=== PATIENT | female | born 1940 | race Caucasian/White ===

== ENCOUNTER 2017-07-16 23:47 | Inpatient (IN) | payer MEDICARE ==
[~2017-07-16] VITALS: Ht 172.7 cm; Wt 69.9 kg
[~2017-07-16 23:47] MED LIST: ASPI-1169 PO; ATOR20TA PO; ENAL5TAB PO; VERA40TA5 PO
--- NOTE | 2017-07-17 00:05 | NUR ---
ADMISSION NOTES: ADMITTED 77 Y/O WHITE FEMALE FROM [facility]. PT ARRIVE VIA GURNEY ASSISTED BY EMT. PT IS ON 5150 HOLD FOR GD. PER HOLD PATIENT'S SPOUSE IS OUT OF TOWN AND DAUGHTER CALLED 911 BECAUSE PT IS REFUSING TO EAT, GROOM, OR TAKE HER PSYCHIATRIC MEDICATIONS. PATIENT NORMALLY TAKES HALOPERIDOL AND PROZAC. PT UNABLE TO TAKE CARE OF HERSELF. PATIENT ADMITTING DX. SCHIZOPRENIA AND MEDICAL DX. OF HTN, HIGH CHOLESTEROL. UPON FACE TO FACE ASSESSMENT. PATIENT APPEARED ALERT,ORIENTED X 1, CONFUSED, DISORIENTED, DISORGANIZED, RESTLESS, ANXIOUS. V/S STABLE. NO SOB, NO ACUTE DISTRESS, BREATHING EVEN AND UNLABORED, DENIES PAIN AND DISCOMFORT. SKIN/ BODY CHECK DONE, SKIN CLEAR AND INTACT, BELONGINGS CHECKED FOR ANY CONTRABAND ITEMS, NO CONTRABAND FOUND. BOTH DOCTORS MADE AWARE OF THE ADMISSIONS. ALL NEEDS ATTENDED. KEPT CLEAN AND DRY AT ALL TIMES. WILL CONTINUE TO MONITOR FOR SAFETY.
[2017-07-17] MEDS ORDERED: ACETAMINOPHEN 325 MG TABLET PO PRN (00:30)
[2017-07-17] MEDS ORDERED: MAGNESIUM HYDROXIDE 30 ML UDC PO PRN (00:30)
[2017-07-17] MEDS ORDERED: MAG HYDROX/AL HYDROX/SIMETH 30 ML UDC PO PRN (00:30)
[2017-07-17] MEDS ORDERED: LORAZEPAM 0.5 MG TABLET PO PRN (00:30)
[2017-07-17 08:06] VITALS: BP 152/88
[2017-07-17] MEDS: ASPIRIN 81 MG TAB.CHEW PO SCH ×2 (09:39→16:18)
[2017-07-17] MEDS: ENALAPRIL MALEATE (5 MG) 5 MG TABLET PO SCH (09:40)
[2017-07-17] MEDS: VERAPAMIL HCL 80 MG TABLET PO SCH (09:41)
[2017-07-17] MEDS: Z GUARD REMEDY 2 OZ OINT TP SCH (09:42)
[2017-07-17] MEDS: BENZTROPINE MESYLATE (1 MG) 1 MG TABLET PO SCH ×2 (12:36→16:18)
[2017-07-17] MEDS: HALOPERIDOL 5 MG TABLET PO SCH ×2 (12:37→16:18)
[2017-07-17 16:16] VITALS: BP 133/58
[2017-07-17 19:55] VITALS: BP 99/49
[2017-07-17] MEDS: ATORVASTATIN 10 MG TABLET PO SCH (21:32)
[2017-07-18 08:00] VITALS: BP 143/80
[2017-07-18] MEDS: BENZTROPINE MESYLATE (1 MG) 1 MG TABLET PO SCH ×2 (09:18→16:57)
[2017-07-18] MEDS: ENALAPRIL MALEATE (5 MG) 5 MG TABLET PO SCH (09:19)
[2017-07-18] MEDS: ASPIRIN 81 MG TAB.CHEW PO SCH ×2 (09:19→16:57)
[2017-07-18] MEDS: FLUOXETINE HCL 20 MG CAPSULE PO SCH (09:19)
[2017-07-18] MEDS: HALOPERIDOL 5 MG TABLET PO SCH ×2 (09:19→16:58)
[2017-07-18] MEDS: Z GUARD REMEDY 2 OZ OINT TP SCH (09:24)
[2017-07-18] MEDS: VERAPAMIL HCL 80 MG TABLET PO SCH (09:25)
[2017-07-18 16:00] VITALS: BP 130/71
[2017-07-18] MEDS: ATORVASTATIN 10 MG TABLET PO SCH (21:46)
[2017-07-18] MEDS: TEMAZEPAM 7.5 MG CAPSULE PO PRN (21:47)
[2017-07-19 08:00] VITALS: BP 138/70
[2017-07-19] MEDS: HALOPERIDOL 5 MG TABLET PO SCH ×2 (08:30→16:45)
[2017-07-19] MEDS: ASPIRIN 81 MG TAB.CHEW PO SCH ×2 (08:31→16:44)
[2017-07-19] MEDS: ENALAPRIL MALEATE (5 MG) 5 MG TABLET PO SCH (08:31)
[2017-07-19] MEDS: FLUOXETINE HCL 20 MG CAPSULE PO SCH (08:31)
[2017-07-19] MEDS: BENZTROPINE MESYLATE (1 MG) 1 MG TABLET PO SCH ×2 (08:31→16:44)
[2017-07-19] MEDS: VERAPAMIL HCL 80 MG TABLET PO SCH (08:32)
[2017-07-19] MEDS: Z GUARD REMEDY 2 OZ OINT TP SCH (08:32)
--- NOTE | 2017-07-19 12:44 | NUR ---
Initial Discharge Note: Per pts daughter Corrine Chavez [phone] pt cannot return home to [address] [place] [id number] due to being on vacation for 3 weeks and pt being unsafe and unsupervised at home. Pts daughter would like pt to be placed at a SNF until pts returns home. SW will help form a safe and proper discharge home in collaboration with .
--- NOTE | 2017-07-19 12:45 | NUR ---
SW spoke with pts daughter Corrine Chavez [phone] for collateral information.
--- NOTE | 2017-07-19 14:16 | NUR ---
Juana faxed referral to Binh Collision Technician at [facility] [id number] [facility] [id number] .
[2017-07-19 16:00] VITALS: BP 154/87
[2017-07-19] MEDS: MUPIROCIN OINT 2% 22 GM TUBE SCH (21:55)
[2017-07-19] MEDS: ATORVASTATIN 10 MG TABLET PO SCH (21:56)
[2017-07-19] MEDS: TEMAZEPAM 7.5 MG CAPSULE PO PRN (22:17)
[2017-07-20 08:00] VITALS: BP 160/79
[2017-07-20] MEDS: MUPIROCIN OINT 2% 22 GM TUBE SCH ×2 (10:16→20:37)
[2017-07-20] MEDS: VERAPAMIL HCL 80 MG TABLET PO SCH (10:17)
[2017-07-20] MEDS: ASPIRIN 81 MG TAB.CHEW PO SCH ×2 (10:17→17:51)
[2017-07-20] MEDS: ENALAPRIL MALEATE (5 MG) 5 MG TABLET PO SCH (10:18)
[2017-07-20] MEDS: BENZTROPINE MESYLATE (1 MG) 1 MG TABLET PO SCH ×2 (10:18→17:52)
[2017-07-20] MEDS: HALOPERIDOL 5 MG TABLET PO SCH ×2 (10:18→17:51)
[2017-07-20] MEDS: FLUOXETINE HCL 20 MG CAPSULE PO SCH (10:18)
[2017-07-20] MEDS: Z GUARD REMEDY 2 OZ OINT TP SCH (10:22)
[2017-07-20] MEDS ORDERED: hydrALAZINE HCL 25 MG TABLET PO PRN (11:00)
[2017-07-20 16:00] VITALS: BP_SYST 106; BP_SYST 108; BP_DIAS 56; BP_DIAS 66
--- NOTE | 2017-07-20 16:12 | NUR ---
DR. URIAS IN TO SEE PT.
--- NOTE | 2017-07-20 16:28 | NUR ---
Per pts daughter request LIYA faxed referral to Cara from [facility] Address: [address] [place] [address] fax: [phone]. SW informed pts daughter that [facility] had been [facility] however, pts daughter wanted SW to refer to this facility.
[2017-07-20 20:00] VITALS: BP 119/60
[2017-07-20 20:17] VITALS: BP 119/60
[2017-07-20] MEDS: ATORVASTATIN 10 MG TABLET PO SCH (21:29)
[2017-07-20] MEDS: TEMAZEPAM 7.5 MG CAPSULE PO PRN (21:48)
[2017-07-21] MEDS: BENZTROPINE MESYLATE (1 MG) 1 MG TABLET PO SCH ×2 (08:40→16:23)
[2017-07-21] MEDS: HALOPERIDOL 5 MG TABLET PO SCH ×2 (08:40→16:47)
[2017-07-21] MEDS: FLUOXETINE HCL 20 MG CAPSULE PO SCH (08:41)
[2017-07-21] MEDS: ASPIRIN 81 MG TAB.CHEW PO SCH ×2 (08:41→16:23)
[2017-07-21] MEDS: ENALAPRIL MALEATE (5 MG) 5 MG TABLET PO SCH (08:41)
[2017-07-21] MEDS: AMLODIPINE BESYLATE 5 MG TABLET PO SCH (08:41)
[2017-07-21] MEDS: MUPIROCIN OINT 2% 22 GM TUBE SCH ×2 (08:42→21:01)
[2017-07-21] MEDS: Z GUARD REMEDY 2 OZ OINT TP SCH (08:45)
[2017-07-21 08:56] VITALS: BP 152/63
--- NOTE | 2017-07-21 11:12 | NUR ---
Cara from [facility] Address: [address] [facility], [place] [address] contacted SW to inform her pt was not accepted to facility due to pts behavior and facility not being able to meet pts needs.
--- NOTE | 2017-07-21 11:14 | NUR ---
SW contacted pts daughter Corrine Chavez [phone] to inform her that pt was not accepted to [facility]. However SW reassured pts daughter that pt has been accepted to [facility] and will be discharge early next week. Pts daughter agreed to discharge plan.
[2017-07-21 16:00] VITALS: BP 146/70
[2017-07-21 20:00] VITALS: BP 123/79
[2017-07-21] MEDS: TEMAZEPAM 7.5 MG CAPSULE PO PRN (22:10)
[2017-07-21] MEDS: ATORVASTATIN 10 MG TABLET PO SCH (22:10)
[2017-07-22 08:00] VITALS: BP 119/76
[2017-07-22] MEDS: FLUOXETINE HCL 20 MG CAPSULE PO SCH (08:41)
[2017-07-22] MEDS: HALOPERIDOL 5 MG TABLET PO SCH ×2 (08:41→16:23)
[2017-07-22] MEDS: ASPIRIN 81 MG TAB.CHEW PO SCH ×2 (08:41→16:23)
[2017-07-22] MEDS: MUPIROCIN OINT 2% 22 GM TUBE SCH ×2 (08:41→21:27)
[2017-07-22] MEDS: BENZTROPINE MESYLATE (1 MG) 1 MG TABLET PO SCH ×2 (08:42→16:22)
[2017-07-22] MEDS: AMLODIPINE BESYLATE 5 MG TABLET PO SCH (08:42)
[2017-07-22] MEDS: Z GUARD REMEDY 2 OZ OINT TP SCH (08:43)
[2017-07-22] MEDS: ENALAPRIL MALEATE (5 MG) 5 MG TABLET PO SCH (08:43)
[2017-07-22 16:00] VITALS: BP 150/83
[2017-07-22 20:00] VITALS: BP 137/77
[2017-07-22] MEDS: ATORVASTATIN 10 MG TABLET PO SCH (21:27)
[2017-07-22] MEDS: TEMAZEPAM 7.5 MG CAPSULE PO PRN (21:28)
[2017-07-23] MEDS: BENZTROPINE MESYLATE (1 MG) 1 MG TABLET PO SCH ×2 (08:22→16:28)
[2017-07-23] MEDS: HALOPERIDOL 5 MG TABLET PO SCH ×2 (08:22→16:28)
[2017-07-23] MEDS: ASPIRIN 81 MG TAB.CHEW PO SCH ×2 (08:22→16:28)
[2017-07-23] MEDS: FLUOXETINE HCL 20 MG CAPSULE PO SCH (08:23)
[2017-07-23 08:30] VITALS: BP 113/55
[2017-07-23] MEDS: Z GUARD REMEDY 2 OZ OINT TP SCH (08:39)
[2017-07-23] MEDS: AMLODIPINE BESYLATE 5 MG TABLET PO SCH (08:39)
[2017-07-23] MEDS: ENALAPRIL MALEATE (5 MG) 5 MG TABLET PO SCH (08:39)
[2017-07-23] MEDS: MUPIROCIN OINT 2% 22 GM TUBE SCH ×2 (08:40→20:52)
[2017-07-23 16:35] VITALS: BP 118/62
--- NOTE | 2017-07-23 19:45 | NUR ---
GPS/HORSE SHOER; RECEIVED PT IN BED AWAKE, ALERT AND VERBALLY RESPONSVE WHEN TALKED TO. PT WITH PERIODS OF CONFUSION. BREATHING NON LABORED. BED ON LOWER POSITION AND LOCKED FOR SAFETY. SIDE RAILS X 2 ARE UP FOR SAFETY. ON CONTACT ISOLATION OBSERVED. WILL CONTINUE TO MONITOR.
[2017-07-23 20:00] VITALS: BP 111/68
[2017-07-23] MEDS: ATORVASTATIN 10 MG TABLET PO SCH (21:27)
--- NOTE | 2017-07-24 00:15 | NUR ---
GPS/SUPERVISOR INTERNATIONAL RESERVATIONS; PT IN BED STILL AWAKE. RESTORIL 7.5 MG PO 1 CAP. PO HS PRN GIVEN ORDERED. WILL MONITOR.
[2017-07-24] MEDS: TEMAZEPAM 7.5 MG CAPSULE PO PRN ×2 (00:17→21:27)
--- NOTE | 2017-07-24 01:00 | NUR ---
GPS/HOME CARE PROVIDER; PT IN BED SLEEPING AT THIS TIME. BREATHING NON LABORED.
[2017-07-24 08:31] VITALS: BP 146/54
[2017-07-24] MEDS: FLUOXETINE HCL 20 MG CAPSULE PO SCH (09:31)
[2017-07-24] MEDS: ASPIRIN 81 MG TAB.CHEW PO SCH ×2 (09:31→16:14)
[2017-07-24] MEDS: BENZTROPINE MESYLATE (1 MG) 1 MG TABLET PO SCH ×2 (09:31→16:14)
[2017-07-24] MEDS: HALOPERIDOL 5 MG TABLET PO SCH ×2 (09:32→16:14)
[2017-07-24] MEDS: ENALAPRIL MALEATE (5 MG) 5 MG TABLET PO SCH (09:32)
[2017-07-24] MEDS: AMLODIPINE BESYLATE 5 MG TABLET PO SCH (09:32)
[2017-07-24] MEDS: Z GUARD REMEDY 2 OZ OINT TP SCH (09:33)
[2017-07-24] MEDS: MUPIROCIN OINT 2% 22 GM TUBE SCH ×2 (09:33→21:27)
[2017-07-24 16:16] VITALS: BP 96/50
[2017-07-24 20:30] VITALS: BP 117/61
[2017-07-24] MEDS: ATORVASTATIN 10 MG TABLET PO SCH (21:27)
[2017-07-25] MEDS: ENALAPRIL MALEATE (5 MG) 5 MG TABLET PO SCH (08:30)
[2017-07-25] MEDS: BENZTROPINE MESYLATE (1 MG) 1 MG TABLET PO SCH ×2 (08:30→16:30)
[2017-07-25] MEDS: FLUOXETINE HCL 20 MG CAPSULE PO SCH (08:30)
[2017-07-25] MEDS: ASPIRIN 81 MG TAB.CHEW PO SCH ×2 (08:31→16:30)
[2017-07-25] MEDS: AMLODIPINE BESYLATE 5 MG TABLET PO SCH (08:31)
[2017-07-25] MEDS: HALOPERIDOL 5 MG TABLET PO SCH ×2 (08:31→16:30)
[2017-07-25 09:27] VITALS: BP 138/70
[2017-07-25] MEDS: Z GUARD REMEDY 2 OZ OINT TP SCH (09:29)
[2017-07-25] MEDS: MUPIROCIN OINT 2% 22 GM TUBE SCH ×2 (09:29→20:47)
[2017-07-25 16:00] VITALS: BP 148/80
[2017-07-25 19:58] VITALS: BP 140/62
[2017-07-25 20:00] VITALS: BP 140/62
[2017-07-25] MEDS: ATORVASTATIN 10 MG TABLET PO SCH (22:07)
--- NOTE | 2017-07-26 03:00 | NUR ---
Pts daughter Corrine Chavez [phone] contacted SW to inform her that pts was on his way from vacation to pickling tank operator pt and if discharge could be delayed until tomorrow 07/27/17. Pts daughter stated to SW that she is unable to assist with transition from hospital to SNF due to personal medical reasons. SW informed pts daughter that pt was combative with [facility] team and did not allow them to touch her to assist with transportation to SNF. SW explained to pts daughter that she would have to discuss with MD regarding delaying discharge. Pts daughter understood.
--- NOTE | 2017-07-26 03:15 | NUR ---
SW contacted Pts daughter Corrine Chavez [phone] to inform her that MD approved for delayed discharge however SW needed to confirm mixing picker tender time with pts . Pts daughter stated that pts did not give her an exact time but he would be picking up pt in the evening. Pts daughter provided SW with pts husbands contact info.
--- NOTE | 2017-07-26 03:30 | NUR ---
SW attempted to contact pts Summer Stewart [phone] to confirm knot picker cloth time. NO answer unable to leave voicemail.
--- NOTE | 2017-07-26 03:45 | NUR ---
SW attempted to contact pts Summer Stewart [phone] to confirm picker and packer time. NO answer unable to leave voicemail.
--- NOTE | 2017-07-26 04:00 | NUR ---
SW attempted to contact pts Summer Stewart [phone] to confirm pear picker time. NO answer unable to leave voicemail.
--- NOTE | 2017-07-26 04:15 | NUR ---
SW attempted to contact pts Summer Stewart [phone] to confirm knot picker cloth time. NO answer unable to leave voicemail.
[2017-07-26 08:30] VITALS: BP 164/98
[2017-07-26] MEDS: MUPIROCIN OINT 2% 22 GM TUBE SCH ×2 (09:21→21:17)
[2017-07-26] MEDS: Z GUARD REMEDY 2 OZ OINT TP SCH (09:21)
[2017-07-26] MEDS: HALOPERIDOL 5 MG TABLET PO SCH ×2 (09:22→17:23)
[2017-07-26] MEDS: BENZTROPINE MESYLATE (1 MG) 1 MG TABLET PO SCH ×2 (09:22→17:23)
[2017-07-26] MEDS: ASPIRIN 81 MG TAB.CHEW PO SCH ×2 (09:23→17:23)
[2017-07-26] MEDS: AMLODIPINE BESYLATE 5 MG TABLET PO SCH (09:23)
[2017-07-26] MEDS: FLUOXETINE HCL 20 MG CAPSULE PO SCH (09:23)
[2017-07-26] MEDS: ENALAPRIL MALEATE (5 MG) 5 MG TABLET PO SCH (09:24)
--- NOTE | 2017-07-26 10:02 | NUR ---
DISCHARGE NOTE: Pt [facility] [address] [facility] [address] via [facility] ambulance trip# [id number]. Pts mood and affect was anxious and cooperative. Pt denied suicidal/homicidal ideations and denied visual/auditory hallucinations and agreed with discharge plan. Daughter Corrine Rebolledo [phone] has been notified and agrees to discharge plan. For smoking cessation, patient will be referred to the [employer] or [employer] [id number]. Patient was also referred to the Nicotine Anonymous meeting on July at 7:00pm at [address] [place] [address]. Pt will be under the medical care of Extrusion Process Operator: Dr Whittington Address: [address] [place] [address] and Psychiatrist: Dr Alicja Evans [id number] [address]. The multidisciplinary exitcare form was done, printed, signed, and given to the patient. Addendum: 07/26/17 at 1626 by CHELY NICKERSON Pt was not discharged due to pt becoming combative and refusing to leave without . Pt being discharged home to [address] [place] [address]. Pt will be picked up by Summer Stewart [phone] via private vehicle. Daughter Corrine Rebolledo [phone] has been notified.(Time TBD). Per MD pt will be discharged home instead of SNF.
--- NOTE | 2017-07-26 13:00 | NUR ---
NURSING NOTE Pt is going to [facility] [address] [facility] [address] via [facility] ambulance trip# [id number]. Report was given to JUDAH Orellana. Will continue to monitor for safety.
--- NOTE | 2017-07-26 14:30 | NUR ---
NURSING NOTE PT REFUSED TO LEAVE THE HOSPITAL, STATING "I AM WAITING FOR MY TO PICK ME UP, I DON'T WANT TO GO TO [place]". PT IS A&OX1, CONFUSED, DISORIENTED, EASILY AGITATED, IRRITABLE, FORGETFUL. MOBILE SALES ASSISTANT KIARRA WAS NOTIFIED, MOBILE SALES ASSISTANT SPOKE TO PT'S DAUGHTER ON THE PHONE AND SPOKE TO LIYA MO. PER LIYA MO PT WILL NOT BE DISCHARGED TODAY AND SHE WILL NOTIFY DR. BEAVERS. WILL CONTINUE TO MONITOR PT FOR SAFETY AND BEHAVIOR.
[2017-07-26 20:15] VITALS: BP 101/52
[2017-07-26] MEDS: ATORVASTATIN 10 MG TABLET PO SCH (21:17)
[2017-07-26] MEDS: TEMAZEPAM 7.5 MG CAPSULE PO PRN (21:58)
[2017-07-27 08:00] VITALS: BP 100/56
--- NOTE | 2017-07-27 08:26 | NUR ---
SW attempted to contact pts Summer Stewart [phone] to confirm picker feeder time. NO answer unable to leave voicemail.
--- NOTE | 2017-07-27 08:39 | NUR ---
SW contact pts Summer Stewart [phone] to confirm picked edge sewing machine operator time pts stated he was in [place] and could not come to pick her up until tomorrow. SW stated to pts that pt could not stay another day and needed to be discharged today.SW also informed pts that pt had been extended an extra day for discharge due to pts daughter stating that pts would pick pt up today in the evening. SW stated to pts that pt would be discharged today to [facility]. Pts was upset and hung up the phone on SW.
--- NOTE | 2017-07-27 08:42 | NUR ---
LIYA contacted Pts daughter Corrine Chavez [phone] to inform her that pts could not brick picker pt until tomorrow 07/28/17. Pts daughter was upset that pts would not come brick picker pt and understood that discharge needed to happen today. LIYA informed pts daughter that pt will be discharging at 11:30am to [place], Pts daughter agreed.
[2017-07-27 09:00] VITALS: BP 100/56
[2017-07-27] MEDS: AMLODIPINE BESYLATE 5 MG TABLET PO SCH (09:00)
[2017-07-27] MEDS: MUPIROCIN OINT 2% 22 GM TUBE SCH (09:00)
[2017-07-27] MEDS: ENALAPRIL MALEATE (5 MG) 5 MG TABLET PO SCH (09:00)
[2017-07-27] MEDS: FLUOXETINE HCL 20 MG CAPSULE PO SCH (09:12)
[2017-07-27] MEDS: BENZTROPINE MESYLATE (1 MG) 1 MG TABLET PO SCH (09:12)
[2017-07-27] MEDS: ASPIRIN 81 MG TAB.CHEW PO SCH (09:13)
[2017-07-27] MEDS: HALOPERIDOL 5 MG TABLET PO SCH (09:14)
[2017-07-27] MEDS: Z GUARD REMEDY 2 OZ OINT TP SCH (09:18)
--- NOTE | 2017-07-27 11:55 | NUR ---
DISCHARGE NOTE: [facility]:30am [facility] [address] [facility] [address] via [facility] ambulance trip# [id number]. Pts mood and affect was anxious and cooperative. Pt denied suicidal/homicidal ideations and denied visual/auditory hallucinations and agreed with discharge plan. Daughter Corrine [phone] has been notified and agrees to discharge plan. For smoking cessation, patient will be referred to the [employer] or [employer] [id number]. Patient was also referred to the Nicotine Anonymous meeting on July at 7:00pm at [address] [place] [address]. Pt will be under the medical care of Pharmacology Teacher: Dr Whittington Address: [address] [place] [address] and Psychiatrist: Dr Alicja Evans [phone] [address]. The multidisciplinary exitcare form was done, printed, signed, and given to the patient.
--- NOTE | 2017-07-27 12:01 | NUR ---
DISCHARGE NOTE: PATIENT LEFT THE UNIT AT 1155 WITH AMBULANCE ON GURNEY. PATIENT IS ALERT AND ORIENTED X 2. MEDICALLY STABLE. VITAL SIGNS STABLE. RUTHANN GAVE DISCHARGE ORDER, DISCONTINUE HOLD, AND GAVE PRESCRIPTION. SUPERVISOR INCISING MADE AWARE AND AGREES. PATIENT DENIES SI/HI DURING DISCHARGE. DENIES VH, AH, AND COMMAND HALLUCINATIONS. BELONGINGS WITH PATIENT DURING DISCHARGE. EXIT CARE PAPERS GIVEN AND EXPLAINED TO PATIENT DURING DISCHARGE. SKIN ASSESSMENT DENIED.
== END 2017-07-27 11:55 | DRG 885 ==
LOC: GPS 23:47
PROVIDERS: ADMIT Psychiatry & Neurology Psychiatry; ATTEND Nurse Practitioner Acute Care
DX: F25.1 Schizoaffective disorder, depressive type (principal); F23 Brief psychotic disorder; E78.5 Hyperlipidemia, unspecified; I10 Essential (primary) hypertension; I70.90 Unspecified atherosclerosis; Z22.322 Carrier or suspected carrier of Methicillin resistant Staphylococcus aureus; Z91.19 Patient's noncompliance with other medical treatment and regimen
CPT/HCPCS: 87081-TC

== ENCOUNTER 2020-04-01 10:54 | Emergency (ER) | payer MEDICARE ==
[~2020-04-01] VITALS: Ht 170.2 cm; Wt 60.3 kg
[~2020-04-01 10:54] MED LIST changes: +ENAL-78 PO; -ENAL5TAB PO
--- NOTE | 2020-04-01 11:00 | NUR ---
PT TALISHA FROM SNF C/O L BROW LAC. "STAFF FOUND HER ON THE BED WITH THE LAC ON THE L BROW" PT IS AAOX1, NOT IN RESPIRATORY DISTRESS, V/S STABLE, KEPT RESTED AND COMFORTABLE. WILL CONTINUE TO MONITOR.
--- NOTE | 2020-04-01 11:42 | NUR ---
PT SEEN AND EXAMINED BY .
[2020-04-01] MEDS ORDERED: LIDOCAINE 2% JEL UROJET 10 ML MM ONE (12:00)
--- NOTE | 2020-04-01 12:00 | NUR ---
PT IS WHEELED TO CT SCAN VIA [facility].
--- NOTE | 2020-04-01 12:10 | NUR ---
IV LINE ESTABLISHED BLOOD DRAW AND SENT TO LAB.
[2020-04-01 12:20] LABS: MEAN CORPUSCULAR HGB CONC 32 g/dl (31.0-36.0)
[2020-04-01 12:23] LABS: BASOPHILS % (AUTO) 0.8 % (0.0-2.0); EOSINOPHILS % (AUTO) 1.2 % (0.0-6.0); HEMATOCRIT 33 % (33-45); HEMOGLOBIN 10.8 g/dL (11.5-14.8); LYMPHOCYTES # (AUTO) 0.9 /CMM (0.8-4.8); LYMPHOCYTES % (AUTO) 20.8 % (20.0-44.0); MEAN CORPUSCULAR VOLUME 84 fL (82-100); MONOCYTES # (AUTO) 0.7 /CMM (0.1-1.30); MONOCYTES % (AUTO) 15.5 % (2.0-12.0); NEUTROPHILS # (AUTO) 2.8 /CMM (1.8-8.9); NEUTROPHILS % (AUTO) 61.7 % (43.0-81.0); PLATELET COUNT (AUTO) 318 /CMM (150-450); RED BLOOD CELL COUNT(AUTO) 3.97 MIL/uL (4.0-5.2); WHITE BLOOD COUNT (AUTO) 4.5 K/uL (4.3-11.0)
[2020-04-01 12:26] LABS: CREATININE 0.9 mg/dL (0.6-1.3)
[2020-04-01 12:32] LABS: ALBUMIN 2.8 g/dL (3.4-5.0); BILIRUBIN,DIRECT 0.1 mg/dL (0.0-0.2); BILIRUBIN,TOTAL 0.5 mg/dL (0.2-1.0); TOTAL PROTEIN, SERUM 7.3 g/dL (6.4-8.2)
[2020-04-01] MEDS ORDERED: LIDOCAINE 0.5%-EPI 1:200,000 50 ML VIAL ONE (12:43)
--- NOTE | 2020-04-01 14:00 | NUR ---
CALLED TRANSPORT [facility] ETA 1500 IS PER UBALDO.
--- NOTE | 2020-04-01 15:05 | NUR ---
REPORT GIVEN TO EMT FOR PT TRANSFER TO [facility].
--- NOTE | 2020-04-01 15:10 | NUR ---
REPORT GIVEN TO JUDAH BARNEY FOR [facility].
[2020-04-01 15:20] VITALS: BP 139/92
== END 2020-04-01 15:21 ==
LOC: ER 10:57
DX: S01.112A Laceration without foreign body of left eyelid and periocular area, initial encounter (principal); R51.9 Headache, unspecified; I10 Essential (primary) hypertension; Z79.82 Long term (current) use of aspirin; Z79.899 Other long term (current) drug therapy; W01.0XXA Fall on same level from slipping, tripping and stumbling without subsequent striking against object, initial encounter; Y93.89 Activity, other specified; Y92.091 Bathroom in other non-institutional residence as the place of occurrence of the external cause; Y99.8 Other external cause status
CPT/HCPCS: 12014; 36415; 70450; 72125; 80048; 80076; 85025; 85730; 99285; A6403; J3490